=== PATIENT | female | born 1955 | race Hispanic/Latino ===

== ENCOUNTER 2017-10-26 13:29 | Inpatient (IN) | payer OTHER ==
--- NOTE | 2017-10-26 14:02 | Emergency Department Report ---
Chief Complaint: Extremity Problem,Nontraumatic Stated Complaint: UNAABLE TO WALK Time Seen by Provider: 10/26/17 13:48 - HPI History of Present Illness: Patient has been brought her back to the emergency room after being seen here a couple days ago. Patient came in for swelling to her legs and says she can't walk. She reports that she is having pain to her legs. Patient has a history of asthma, COPD and oxygen at home. Heart attack, congestive heart failure, chronic bilateral leg swelling, osteoarthritis. Patient says she came back because she can't walk. Patient was given a prescription for Bumex, spironolactone and Percocet and she has a prescription with her. Her said he couldn't get to the pharmacy. - ROS Review of Systems: All systems are negative unless stated in HPI above - Exam Vital Signs: Vital Signs 10/26/17 13:48 Temperature 97.8 F Pulse Rate 100 H Respiratory 18 Rate Blood Pressure 107/67 O2 Sat by Pulse 94 Oximetry Physical Exam: Gen.: 61-year-old female in no acute distress. Extremity: Bilateral lower extremity swelling, no cyanosis, no clubbing. +2 pulses to all extremities. No neurovascular compromise. No calf tenderness. Lungs: Patient on O2 with O2 sat at 94% on 2 L nasal cannula. No respiratory distress noted. Lung sounds diminished throughout from chronic COPD Cardiovascular: S1 and S2. Regular rate and rhythm negative murmur MSE screening note: Focused history and physical exam performed. Due to findings the following was ordered: ED Medical Decision Making - Medical Decision Making MDM: Patient screened by provider in triage area. Appropriate protocol initiated and patient to be seen in main ED by ED Disposition for MSE Condition: Stable
[2017-10-26 16:10] LABS: Alanine Aminotransferase 13 units/L (7-56); Albumin 3.5 g/dL (3.9-5); BUN/Creatinine Ratio 22; Blood Urea Nitrogen 20 mg/dL (7-17); Calcium 8.4 mg/dL (8.4-10.2); Hemolysis Index 9
--- NOTE | 2017-10-26 17:23 | Emergency Department Report ---
ED General Adult HPI - General Chief complaint: Extremity Problem,Nontraumatic Stated complaint: UNAABLE TO WALK Time Seen by Provider: 10/26/17 13:48 Source: patient, EMS Mode of arrival: Wheelchair Limitations: Physical Limitation - History of Present Illness Initial comments: Patient is 61-year-old female says she's had increasing pedal edema. Patient states she was recently released from [facility] she is a members at which she was admitted she wanted us to review the old records she probably had a admission at this facility also the admission and we have is not in the computer as a discharge summary however previous x-rays to show that she had CHF with a trach he ostomy patient states that they increasing swelling in her legs making it difficult to get around she is currently on medical management and is requesting transfer to rehabilitation he is here for essentially evaluation prior to possible admission for rehabilitation worsening pedal edema and acute exacerbation of her CHF and chest pain denies any fever no focal neural complaints of abdominal complaints - Related Data Allergies Allergy/AdvReac Type Severity Reaction Status Date / Time lisinopril Allergy Unknown Verified 10/26/17 13:48 pregabalin [From Lyrica] Allergy Unknown Verified 10/26/17 13:48 ED Review of Systems ROS: Stated complaint: UNAABLE TO WALK Other details as noted in HPI Comment: All other systems reviewed and negative Constitutional: denies: diaphoresis, malaise ENT: denies: dental pain, hearing loss, epistaxis Respiratory: orthopnea, SOB with exertion. denies: shortness of breath, SOB at rest Cardiovascular: dyspnea on exertion, orthopnea, edema. denies: chest pain, palpitations, syncope, paroxysmal nocturnal dyspnea Gastrointestinal: denies: abdominal pain, nausea, vomiting, diarrhea, constipation, hematemesis Genitourinary: denies: frequency, hematuria, discharge Musculoskeletal: denies: joint swelling, arthralgia, myalgia Neurological: denies: headache, weakness, numbness, paresthesias, confusion Hematological/Lymphatic: denies: easy bleeding, easy bruising ED Past Medical Hx - Past Medical History Previous Medical History?: Yes Hx Heart Attack/AMI: Yes Hx Asthma: Yes Hx COPD: Yes Additional medical history: leg swelling - Surgical History Past Surgical History?: Yes Additional Surgical History: Lauri akle surgery, Hernia repair x 6 @ [facility] area - Social History Smoking Status: Former Smoker Substance Use Type: Prescribed ED Physical Exam - General Limitations: Physical Limitation General appearance: alert, anxious - Head Head exam: Present: atraumatic, normocephalic - Eye Eye exam: Present: normal appearance, PERRL, EOMI. Absent: nystagmus - ENT ENT exam: Present: normal exam, normal orophraynx - Neck Neck exam: Present: normal inspection. Absent: tenderness, meningismus - Respiratory Respiratory exam: Present: rales, prolonged expiratory. Absent: respiratory distress, wheezes, stridor - Cardiovascular Cardiovascular Exam: Present: regular rate, normal rhythm - GI/Abdominal GI/Abdominal exam: Present: soft. Absent: distended, tenderness, guarding, rebound, mass, pulsatile mass - Extremities Exam Extremities exam: Present: pedal edema. Absent: joint swelling, calf tenderness - Back Exam Back exam: Absent: CVA tenderness (L), muscle spasm, paraspinal tenderness, vertebral tenderness - Neurological Exam Neurological exam: Present: alert, oriented X3, CN II-XII intact. Absent: motor sensory deficit - Skin Skin exam: Absent: cyanosis, diaphoretic, erythema, urticaria, vesicles, petechiae, pallor, abrasion ED Course Vital Signs 10/26/17 10/26/17 10/26/17 13:48 15:22 15:30 Temperature 97.8 F Pulse Rate 100 H Respiratory 18 Rate Blood Pressure 107/67 101/53 O2 Sat by Pulse 94 95 Oximetry 10/26/17 10/26/17 10/26/17 15:46 16:00 16:15 Temperature Pulse Rate Respiratory Rate Blood Pressure 88/42 110/66 109/59 O2 Sat by Pulse 98 95 Oximetry 10/26/17 10/26/17 10/26/17 16:30 16:46 17:00 Temperature Pulse Rate Respiratory Rate Blood Pressure 103/61 86/48 93/58 O2 Sat by Pulse Oximetry 10/26/17 10/26/17 10/26/17 17:15 17:38 19:00 Temperature Pulse Rate Respiratory 18 Rate Blood Pressure 100/54 130/86 O2 Sat by Pulse 97 84 Oximetry 10/26/17 19:16 Temperature Pulse Rate Respiratory Rate Blood Pressure 124/67 O2 Sat by Pulse 100 Oximetry - Reevaluation(s) Reevaluation #1: 10/26/17 19: Laboratory studies studies were ordered patient was given a Lasix chest x-ray shows congestion BMP is elevated patient states she is unable to walk chronic pedal edema chronic CHF ED Medical Decision Making - Lab Data Result diagrams: 10/26/17 15:32 - Radiology Data Radiology results: report reviewed - Medical Decision Making Patient was discussed with Dr. Acosta for admit she is apparently unable to get out of bed will slowly need physical therapy and rehabilitation however at this point time she does appear to have acute exacerbation of her chronic underlying CHF she is denying chest pain chest x-ray show congestion with elevated BMP she' ll be admitted for diuresis and improvement of her medical management of her chronic CHF and referral possibly to rehabilitation for further evaluation of her ambulation and her mobility to address those issues as well Dr. Acosta's or patient will see in the ED Critical care attestation.: If time is entered above; I have spent that time in minutes in the direct care of this critically ill patient, excluding procedure time. ED Disposition Clinical Impression: Acute exacerbation of CHF (congestive heart failure) Disposition: OP ADMIT IP TO THIS HOSP Is pt being admited?: Yes Condition: Stable Referrals: SELENA HEWTIT MD [Primary Care Provider] - 3-5 Days Time of Disposition: 19:30
[2017-10-26] MEDS ORDERED: LASIX PO ONE (17:34)
[2017-10-26] MEDS ORDERED: ATIVAN PO ONE (18:55)
--- NOTE | 2017-10-26 21:00 | XRay Report ---
FINAL REPORT PROCEDURE: Chest. TECHNIQUE: Portable AP view. HISTORY: Congestive heart failure. COMPARISON: No prior studies are available for comparison. FINDINGS: The radiograph is underpenetrated. The cardiac silhouette is enlarged. Pulmonary vascularity is prominent. The right lung is clear. There is some minimal opacity at the left lung base which may represent subsegmental atelectasis. The soft tissues are unremarkable. The regional skeleton appears intact. IMPRESSION: Question mild congestive heart failure.
[2017-10-26 21:25] LABS: Basophils # (Auto) 0.1 K/mm3 (0.0-0.1); Eosinophils # (Auto) 0.3 K/mm3 (0.0-0.4); Eosinophils % (Auto) 2.8 % (0.0-4.3); Hematocrit 30.4 % (30.3-42.9); Hemoglobin 9.4 gm/dl (10.1-14.3); Lymphocytes # (Auto) 1.7 K/mm3 (1.2-5.4); Lymphocytes % (Auto) 17.7 % (13.4-35.0); Mean Corpuscular HGB Conc 31 % (30-34); Mean Corpuscular Hemoglobin 29 pg (28-32); Mean Corpuscular Volume 95 fl (79-97); Monocytes # (Auto) 0.8 K/mm3 (0.0-0.8); Monocytes % (Auto) 8.2 % (0.0-7.3); Platelet Count 283 K/mm3 (140-440); Red Cell Distribution Width 17.6 % (13.2-15.2)
--- NOTE | 2017-10-26 23:29 | History and Physical Report ---
History of Present Illness Date of examination: 10/26/17 Date of admission: 10/26/17 19:32 Chief complaint: CC Increasing SOB for 1 week History of present illness: History of Present Illness Patient is 61-year-old female comes in for increasing pedal edema and SOB at rest. Patient states she was recently released from [facility] -- --she was admitted for CHF exacerbation.Patient has been having increasing SOB at minimal exertion and lying flat.Has NYHA 4 symptoms.No fever/;chills.No recent travel.No chest pain or palpitations.No diaphoresis.Because of recurrent chf exacerbation patient wants to go to LTAC for cardiac rehab. Past Medical History Previous Medical History?: Yes Hx Heart Attack/AMI: Yes Hx Asthma: Yes Hx COPD: Yes Additional medical history: leg swelling - Surgical History Past Surgical History?: Yes Additional Surgical History: Lauri akle surgery, Hernia repair x 6 @ [facility] area - Social History Smoking Status: Former Smoker Substance Use Type: Prescribed Fam Hx Htn Review of Systems Stated complaint: UNAABLE TO WALK Other details as noted in HPI Comment: All other systems reviewed and negative Constitutional: denies: diaphoresis, malaise ENT: denies: dental pain, hearing loss, epistaxis Respiratory: orthopnea, SOB with exertion. denies: shortness of breath, SOB at rest Cardiovascular: dyspnea on exertion, orthopnea, edema. denies: chest pain, palpitations, syncope, paroxysmal nocturnal dyspnea Gastrointestinal: denies: abdominal pain, nausea, vomiting, diarrhea, constipation, hematemesis Genitourinary: denies: frequency, hematuria, discharge Musculoskeletal: denies: joint swelling, arthralgia, myalgia Neurological: denies: headache, weakness, numbness, paresthesias, confusion Hematological/Lymphatic: denies: easy bleeding, easy bruising Medications and Allergies Allergies Allergy/AdvReac Type Severity Reaction Status Date / Time lisinopril Allergy Unknown Verified 10/26/17 13:48 pregabalin [From Lyrica] Allergy Unknown Verified 10/26/17 13:48 Home Medications Medication Instructions Recorded Confirmed Last Taken Type Folic Acid [Folvite] 1 mg PO QDAY 10/26/17 10/26/17 10/26/17 History Oxycodone HCl/Acetaminophen 1 each PO Q6HR PRN 10/26/17 10/26/17 10/26/17 History [Percocet 10/325 mg] Topiramate [Topamax] 100 mg PO BID 10/26/17 10/26/17 10/26/17 History Bumetanide [Bumex 1 mg tab] 2 mg PO BID 10/27/17 10/27/17 Unknown History risperiDONE [Risperdal] 0.5 mg PO BID 10/27/17 10/27/17 Unknown History Active Meds: Active Medications Oxycodone HCl (Roxicodone) 5 mg PO Q6H PRN PRN Reason: Pain, Moderate (4-6) Oxycodone/Acetaminophen (Percocet 5/325) 1 tab PO Q6H PRN PRN Reason: Pain, Moderate (4-6) Exam - Constitutional Vitals: Temp Pulse Resp BP Pulse Ox 97.7 F 95 H 18 106/74 95 10/26/17 21:19 10/26/17 21:19 10/26/17 21:19 10/26/17 21:19 10/26/17 21:19 General appearance: Present: no acute distress, well-nourished - EENT Eyes: Present: PERRL ENT: hearing intact, clear oral mucosa - Neck Neck: Present: supple, normal ROM - Respiratory Respiratory effort: normal Respiratory: bilateral: CTA, rales (Bilaterally) - Cardiovascular Heart rate: 80 Rhythm: regular Heart Sounds: Present: S1 & S2. Absent: rub, click - Extremities Extremities: no ischemia, pulses intact, pulses symmetrical, No edema Extremity abnormal: edema (4 plus) Peripheral Pulses: within normal limits - Abdominal General gastrointestinal: Present: soft, non-tender, non-distended, normal bowel sounds Female genitourinary: Present: normal - Integumentary Integumentary: Present: clear, warm, dry - Musculoskeletal Musculoskeletal: gait normal, strength equal bilaterally - Psychiatric Psychiatric: appropriate mood/affect, intact judgment & insight - Neurologic Neurologic: CNII-XII intact, moves all extremities - Allied Health Allied health notes reviewed: nursing, case management Results - Labs CBC & Chem 7: 10/27/17 05:01 10/27/17 05:01 Labs: Laboratory Last Values WBC 9.4 K/mm3 (4.5-11.0) 10/26/17 20:59 RBC 3.20 M/mm3 (3.65-5.03) L 10/26/17 20:59 Hgb 9.4 gm/dl (10.1-14.3) L 10/26/17 20:59 Hct 30.4 % (30.3-42.9) 10/26/17 20:59 MCV 95 fl (79-97) 10/26/17 20:59 MCH 29 pg (28-32) 10/26/17 20:59 MCHC 31 % (30-34) 10/26/17 20:59 RDW 17.6 % (13.2-15.2) H 10/26/17 20:59 Plt Count 283 K/mm3 (140-440) 10/26/17 20:59 Lymph % (Auto) 17.7 % (13.4-35.0) 10/26/17 20:59 [place] % (Auto) 8.2 % (0.0-7.3) H 10/26/17 20:59 Eos % (Auto) 2.8 % (0.0-4.3) 10/26/17 20:59 Baso % (Auto) 1.0 % (0.0-1.8) 10/26/17 20:59 Lymph # 1.7 K/mm3 (1.2-5.4) 10/26/17 20:59 [place] # 0.8 K/mm3 (0.0-0.8) 10/26/17 20:59 Eos # 0.3 K/mm3 (0.0-0.4) 10/26/17 20:59 Baso # 0.1 K/mm3 (0.0-0.1) 10/26/17 20:59 Seg Neutrophils % 70.3 % (40.0-70.0) H 10/26/17 20:59 Seg Neutrophils # 6.6 K/mm3 (1.8-7.7) 10/26/17 20:59 Sodium 141 mmol/L (137-145) 10/26/17 15:32 Potassium 5.1 mmol/L (3.6-5.0) H 10/26/17 15:32 Chloride 100.1 mmol/L (98-107) 10/26/17 15:32 Carbon Dioxide 27 mmol/L (22-30) 10/26/17 15:32 Anion Gap 19 mmol/L 10/26/17 15:32 BUN 20 mg/dL (7-17) H 10/26/17 15:32 Creatinine 0.9 mg/dL (0.7-1.2) 10/26/17 15:32 Estimated GFR > 60 ml/min 10/26/17 15:32 BUN/Creatinine Ratio 22 % 10/26/17 15:32 Glucose 95 mg/dL (65-100) 10/26/17 15:32 Calcium 8.4 mg/dL (8.4-10.2) 10/26/17 15:32 Total Bilirubin 0.20 mg/dL (0.1-1.2) 10/26/17 15:32 AST 18 units/L (5-40) 10/26/17 15:32 ALT 13 units/L (7-56) 10/26/17 15:32 Alkaline Phosphatase 106 units/L (35-129) 10/26/17 15:32 NT-Pro-B Natriuret Pep 5281 pg/mL (0-900) H 10/26/17 15:32 Total Protein 6.2 g/dL (6.3-8.2) L 10/26/17 15:32 Albumin 3.5 g/dL (3.9-5) L 10/26/17 15:32 Albumin/Globulin Ratio 1.3 % 10/26/17 15:32 Short CBC 10/26/17 10/27/17 Range/Units 20:59 05:01 WBC 9.4 8.6 (4.5-11.0) K/mm3 Hgb 9.4 L 8.4 L (10.1-14.3) gm/dl Hct 30.4 26.4 L (30.3-42.9) % Plt Count 283 277 (140-440) K/mm3 BMP 10/26/17 10/27/17 15:32 05:01 Sodium 141 143 Potassium 5.1 H 3.7 D Chloride 100.1 103.0 Carbon Dioxide 27 27 BUN 20 H 19 H Creatinine 0.9 0.8 Glucose 95 95 Calcium 8.4 8.1 L Liver Function 10/26/17 10/27/17 Range/Units 15:32 05:01 Total Bilirubin 0.20 0.20 (0.1-1.2) mg/dL AST 18 13 (5-40) units/L ALT 13 11 (7-56) units/L Alkaline Phosphatase 106 92 (35-129) units/L Albumin 3.5 L 3.2 L (3.9-5) g/dL - Imaging and Cardiology EKG: report reviewed Chest x-ray: report reviewed (CHF) Assessment and Plan Advance Directives: Yes (FC) VTE prophylaxis?: Chemical Plan of care discussed with patient/family: Yes - Patient Problems (1) Acute exacerbation of CHF (congestive heart failure) Current Visit: Yes Status: Acute Qualifiers: Congestive heart failure type: combined Qualified Code(s): I50.43 - Acute on chronic combined systolic (congestive) and diastolic (congestive) heart failure Plan to address problem: IV lasix for now BNP 5287 Echo ordered To cancel if done recently (2) COPD (chronic obstructive pulmonary disease) Current Visit: Yes Status: Chronic Qualifiers: COPD type: unspecified COPD Qualified Code(s): J44.9 - Chronic obstructive pulmonary disease, unspecified Plan to address problem: Cont Duonebs (3) Pulmonary HTN Current Visit: Yes Status: Chronic Plan to address problem: In view of Pedal edema in favor of Pul HTN May benedfit from revatio Defer to cardiology (4) Hyperkalemia Current Visit: Yes Status: Acute Plan to address problem: Mild -should resolve with Lasix (5) Malnutrition of moderate degree Current Visit: Yes Status: Chronic Plan to address problem: Diet consult requested (6) Bipolar 1 disorder Current Visit: Yes Status: Chronic Plan to address problem: On Risperdal (7) Discharge planning issues Current Visit: Yes Status: Acute Plan to address problem: Patient wants LTAC eval (8) DVT prophylaxis Current Visit: Yes Status: Acute Plan to address problem: on lovenox
[2017-10-26] MEDS ORDERED: MORPHINE IV PRN (23:30)
[2017-10-26] MEDS ORDERED: PROVENTIL IH PRN (23:30)
[2017-10-26] MEDS ORDERED: ZOFRAN IV PRN (23:30)
[2017-10-26] MEDS ORDERED: TYLENOL PO PRN (23:30)
[2017-10-26] MEDS ORDERED: DULCOLAX PR PRN (23:30)
[2017-10-26] MEDS ORDERED: NON-FORMULARY (Oxycodone Hcl/Acetaminophen [Percocet 10/325 Mg] 1 EACH) PO PRN (23:35)
[2017-10-26] MEDS: PERCOCET 5/325 PO PRN (23:50)
[2017-10-26] MEDS: ROXICODONE PO PRN (23:51)
[2017-10-26] MEDS: PEPCID PO SCH (23:51)
[2017-10-27] MEDS: ROXICODONE PO PRN (05:53)
[2017-10-27] MEDS: PERCOCET 5/325 PO PRN ×2 (05:53→22:37)
[2017-10-27] MEDS: LASIX IV SCH ×2 (05:55→18:45)
[2017-10-27 06:06] LABS: Basophils # (Auto) 0.1 K/mm3 (0.0-0.1); Basophils % (Auto) 1.3 % (0.0-1.8); Eosinophils # (Auto) 0.3 K/mm3 (0.0-0.4); Eosinophils % (Auto) 3.3 % (0.0-4.3); Hematocrit 26.4 % (30.3-42.9); Hemoglobin 8.4 gm/dl (10.1-14.3); Lymphocytes # (Auto) 1.9 K/mm3 (1.2-5.4); Lymphocytes % (Auto) 22.3 % (13.4-35.0); Mean Corpuscular HGB Conc 32 % (30-34); Mean Corpuscular Hemoglobin 30 pg (28-32); Mean Corpuscular Volume 93 fl (79-97); Monocytes # (Auto) 0.7 K/mm3 (0.0-0.8); Monocytes % (Auto) 8.4 % (0.0-7.3); Platelet Count 277 K/mm3 (140-440); Red Blood Count 2.83 M/mm3 (3.65-5.03); Red Cell Distribution Width 17.1 % (13.2-15.2)
[2017-10-27 06:30] LABS: Alanine Aminotransferase 11 units/L (7-56); Albumin 3.2 g/dL (3.9-5); BUN/Creatinine Ratio 24; Blood Urea Nitrogen 19 mg/dL (7-17); Calcium 8.1 mg/dL (8.4-10.2); Hemolysis Index 5
[2017-10-27 09:49] LABS: % Iron Saturation 14.45 %
[2017-10-27] MEDS ORDERED: NON-FORMULARY (Risperidone [Risperdal] 0.5 MG) PO SCH (10:00)
[2017-10-27] MEDS: TOPAMAX PO SCH ×2 (10:02→22:33)
--- NOTE | 2017-10-27 10:36 | Progress Note ---
Assessment and Plan Assessment and plan: Acute exacerbation of CHF (congestive heart failure) IV lasix for now BNP 5287 Echo ordered Cardiology consultation pending COPD (chronic obstructive pulmonary disease) Cont Duonebs Pulmonary HTN In view of Pedal edema in favor of Pul HTN May benedfit from revatio Defer to cardiology Hyperkalemia Mild -should resolve with Lasix Malnutrition of moderate degree Diet consult requested Bipolar 1 disorder On Risperdal Deconditioning Consider SNF. I d/w CM DVT prophylaxis on lovenox History Interval history: No new issues overnight. Hospitalist Physical - Constitutional Vitals: Temp Pulse Resp BP Pulse Ox 98.3 F 102 H 18 93/64 95 10/27/17 07:12 10/27/17 07:12 10/27/17 07:12 10/27/17 07:12 10/27/17 08:42 General appearance: Present: no acute distress, well-nourished - EENT Eyes: Present: PERRL, EOM intact ENT: hearing intact, clear oral mucosa, dentition normal - Neck Neck: Present: supple, normal ROM - Respiratory Respiratory effort: normal Respiratory: bilateral: CTA - Cardiovascular Rhythm: regular Heart Sounds: Present: S1 & S2. Absent: gallop, rub - Extremities Extremities: no ischemia, No edema, Full ROM - Abdominal General gastrointestinal: soft, non-tender, non-distended, normal bowel sounds - Integumentary Integumentary: Present: clear, warm, dry - Neurologic Neurologic: CNII-XII intact, moves all extremities Results - Labs CBC & Chem 7: 10/27/17 05:01 10/27/17 05:01 Labs: Laboratory Last Values WBC 8.6 K/mm3 (4.5-11.0) 10/27/17 05:01 RBC 2.83 M/mm3 (3.65-5.03) L 10/27/17 05:01 Hgb 8.4 gm/dl (10.1-14.3) L 10/27/17 05:01 Hct 26.4 % (30.3-42.9) L 10/27/17 05:01 MCV 93 fl (79-97) 10/27/17 05:01 MCH 30 pg (28-32) 10/27/17 05:01 MCHC 32 % (30-34) 10/27/17 05:01 RDW 17.1 % (13.2-15.2) H 10/27/17 05:01 Plt Count 277 K/mm3 (140-440) 10/27/17 05:01 Lymph % (Auto) 22.3 % (13.4-35.0) 10/27/17 05:01 [place] % (Auto) 8.4 % (0.0-7.3) H 10/27/17 05:01 Eos % (Auto) 3.3 % (0.0-4.3) 10/27/17 05:01 Baso % (Auto) 1.3 % (0.0-1.8) 10/27/17 05:01 Lymph # 1.9 K/mm3 (1.2-5.4) 10/27/17 05:01 [place] # 0.7 K/mm3 (0.0-0.8) 10/27/17 05:01 Eos # 0.3 K/mm3 (0.0-0.4) 10/27/17 05:01 Baso # 0.1 K/mm3 (0.0-0.1) 10/27/17 05:01 Seg Neutrophils % 64.7 % (40.0-70.0) 10/27/17 05:01 Seg Neutrophils # 5.5 K/mm3 (1.8-7.7) 10/27/17 05:01 Sodium 143 mmol/L (137-145) 10/27/17 05:01 Potassium 3.7 mmol/L (3.6-5.0) D 10/27/17 05:01 Chloride 103.0 mmol/L (98-107) 10/27/17 05:01 Carbon Dioxide 27 mmol/L (22-30) 10/27/17 05:01 Anion Gap 17 mmol/L 10/27/17 05:01 BUN 19 mg/dL (7-17) H 10/27/17 05:01 Creatinine 0.8 mg/dL (0.7-1.2) 10/27/17 05:01 Estimated GFR > 60 ml/min 10/27/17 05:01 BUN/Creatinine Ratio 24 % 10/27/17 05:01 Glucose 95 mg/dL (65-100) 10/27/17 05:01 Hemoglobin A1c 4.3 % (4-6) 10/27/17 05:01 Calcium 8.1 mg/dL (8.4-10.2) L 10/27/17 05:01 Iron 37 ug/dL (37-170) 10/27/17 09:08 TIBC 256 mcg/dL (250-450) 10/27/17 09:08 % Saturation 14.45 % 10/27/17 09:08 Transferrin 217 mg/dl (192-382) 10/27/17 09:08 Total Bilirubin 0.20 mg/dL (0.1-1.2) 10/27/17 05:01 AST 13 units/L (5-40) 10/27/17 05:01 ALT 11 units/L (7-56) 10/27/17 05:01 Alkaline Phosphatase 92 units/L (35-129) 10/27/17 05:01 NT-Pro-B Natriuret Pep 5281 pg/mL (0-900) H 10/26/17 15:32 Total Protein 6.1 g/dL (6.3-8.2) L 10/27/17 05:01 Albumin 3.2 g/dL (3.9-5) L 10/27/17 05:01 Albumin/Globulin Ratio 1.1 % 10/27/17 05:01 Vitamin B12 1137 pg/mL (211-911) H 10/27/17 09:08
[2017-10-27] MEDS: PEPCID PO SCH ×2 (10:52→22:36)
[2017-10-27] MEDS: RisperDAL PO SCH ×2 (10:52→22:33)
[2017-10-27] MEDS: K-DUR PO SCH ×2 (10:52→22:36)
[2017-10-27] MEDS: HABITROL TD SCH (10:53)
[2017-10-27] MEDS: FOLVITE PO SCH (10:53)
--- NOTE | 2017-10-27 11:21 | Consultation ---
History of Present Illness Consult date: 10/27/17 Consult reason: congestive heart failure History of present illness: This is a 61yr old woman with multiple medical problems who presented with difficulty walking after a prolonged hospitalization at [facility]. Cardiology consultation was requested for CHF. Chest x-ray reports possible mild CHF. She denies chest pain and shortness of breath. Bilateral lower extremity edema noted. Medications and Allergies Allergies Allergy/AdvReac Type Severity Reaction Status Date / Time lisinopril Allergy Unknown Verified 10/26/17 13:48 pregabalin [From Lyrica] Allergy Unknown Verified 10/26/17 13:48 Home Medications Medication Instructions Recorded Confirmed Last Taken Type Folic Acid [Folvite] 1 mg PO QDAY 10/26/17 10/26/17 10/26/17 History Oxycodone HCl/Acetaminophen 1 each PO Q6HR PRN 10/26/17 10/26/17 10/26/17 History [Percocet 10/325 mg] Topiramate [Topamax] 100 mg PO BID 10/26/17 10/26/17 10/26/17 History Bumetanide [Bumex 1 mg tab] 2 mg PO BID 10/27/17 10/27/17 Unknown History risperiDONE [Risperdal] 0.5 mg PO BID 10/27/17 10/27/17 Unknown History Active Meds: Active Medications Acetaminophen (Tylenol) 650 mg PO Q4H PRN PRN Reason: Pain MILD(1-3)/Fever >100.5/[place] Albuterol (Proventil) 2.5 mg IH Q4HRT PRN PRN Reason: Shortness Of Breath Bisacodyl (Dulcolax) 10 mg HI QDAY PRN PRN Reason: Constipation unrelieved by MOM Famotidine (Pepcid) 20 mg PO BID [facility] Last Admin: 10/26/17 23:51 Dose: 20 mg Folic Acid (Folvite) 1 mg PO QDAY [facility] Furosemide (Lasix) 40 mg IV 0600,1800 [facility] Last Admin: 10/27/17 05:55 Dose: 40 mg Magnesium Hydroxide (Milk Of Magnesia) 30 ml PO Q4H PRN PRN Reason: Constipation Morphine Sulfate (Morphine) 2 mg IV Q4H PRN PRN Reason: Pain, Moderate (4-6) Morphine Sulfate (Morphine) 4 mg IV Q4H PRN PRN Reason: Pain , Severe (7-10) Nicotine (Habitrol) 21 mg TD QDAY MICHELLE Ondansetron HCl (Zofran) 4 mg IV Q8H PRN PRN Reason: N/V unrelieved by Reglan Oxycodone HCl (Roxicodone) 5 mg PO Q6H PRN PRN Reason: Pain, Moderate (4-6) Last Admin: 10/27/17 05:53 Dose: 5 mg Oxycodone/Acetaminophen (Percocet 5/325) 1 tab PO Q6H PRN PRN Reason: Pain, Moderate (4-6) Last Admin: 10/27/17 05:53 Dose: 1 tab Potassium Chloride (K-Dur) 20 meq PO Q12HR MICHELLE Risperidone (Risperdal) 0.5 mg PO BID MICHELLE Topiramate (Topamax) 100 mg PO BID MICHELLE Physical Examination Vital Signs Temp Pulse Resp BP Pulse Ox 97.8 F 100 H 18 107/67 94 10/26/17 13:48 10/26/17 13:48 10/26/17 13:48 10/26/17 13:48 10/26/17 13:48 General appearance: no acute distress HEENT: Positive: PERRL Cardiac: Positive: irregularly irregular Neuro: Positive: Grossly Intact Extremities: Present: edema Results 10/27/17 05:01 10/27/17 05:01 Cardiac Enzymes 10/26/17 10/27/17 Range/Units 15:32 05:01 AST 18 13 (5-40) units/L CBC 10/26/17 10/27/17 Range/Units 20:59 05:01 WBC 9.4 8.6 (4.5-11.0) K/mm3 RBC 3.20 L 2.83 L (3.65-5.03) M/mm3 Hgb 9.4 L 8.4 L (10.1-14.3) gm/dl Hct 30.4 26.4 L (30.3-42.9) % Plt Count 283 277 (140-440) K/mm3 Lymph # 1.7 1.9 (1.2-5.4) K/mm3 [place] # 0.8 0.7 (0.0-0.8) K/mm3 Eos # 0.3 0.3 (0.0-0.4) K/mm3 Baso # 0.1 0.1 (0.0-0.1) K/mm3 Comprehensive Metabolic Panel 10/26/17 10/27/17 Range/Units 15:32 05:01 Sodium 141 143 (137-145) mmol/L Potassium 5.1 H 3.7 D (3.6-5.0) mmol/L Chloride 100.1 103.0 (98-107) mmol/L Carbon Dioxide 27 27 (22-30) mmol/L BUN 20 H 19 H (7-17) mg/dL Creatinine 0.9 0.8 (0.7-1.2) mg/dL Glucose 95 95 (65-100) mg/dL Calcium 8.4 8.1 L (8.4-10.2) mg/dL AST 18 13 (5-40) units/L ALT 13 11 (7-56) units/L Alkaline Phosphatase 106 92 (35-129) units/L Total Protein 6.2 L 6.1 L (6.3-8.2) g/dL Albumin 3.5 L 3.2 L (3.9-5) g/dL Assessment and Plan Deconditioned Atrial fibrillation, rate controlled Hx of COPD/TOSHIA Tobacco abuse Hx AAA (3.6 cm) Cardiomyopathy EF 35-40% on echo 08/2017 at [place]
[2017-10-27] MEDS: MORPHINE IV PRN (11:57)
[2017-10-27] MEDS: MILK OF MAGNESIA PO PRN (13:21)
[2017-10-27] MEDS: CORDARONE PO SCH ×2 (13:21→22:36)
[2017-10-27] MEDS: LOPRESSOR PO SCH ×2 (13:22→22:34)
[2017-10-27] MEDS: ELIQUIS PO SCH (22:36)
[2017-10-28] MEDS: ROXICODONE PO PRN ×2 (01:20→21:36)
[2017-10-28] MEDS: LASIX IV SCH ×2 (06:18→17:24)
[2017-10-28] MEDS: PERCOCET 5/325 PO PRN ×2 (06:19→13:27)
[2017-10-28] MEDS: MILK OF MAGNESIA PO PRN (06:31)
[2017-10-28] MEDS: MORPHINE IV PRN (10:02)
[2017-10-28] MEDS: HABITROL TD SCH (10:03)
[2017-10-28] MEDS: RisperDAL PO SCH ×3 (10:47→21:37)
[2017-10-28] MEDS: K-DUR PO SCH ×3 (10:47→21:37)
[2017-10-28] MEDS: CORDARONE PO SCH ×3 (10:47→21:37)
[2017-10-28] MEDS: PEPCID PO SCH ×3 (10:47→21:37)
[2017-10-28] MEDS: FOLVITE PO SCH ×2 (10:47→12:08)
[2017-10-28] MEDS: LOPRESSOR PO SCH ×2 (10:47→21:37)
[2017-10-28] MEDS: ELIQUIS PO SCH ×3 (10:47→21:35)
[2017-10-28] MEDS: TOPAMAX PO SCH ×3 (10:47→21:37)
--- NOTE | 2017-10-28 11:10 | Progress Note ---
Assessment and Plan Deconditioned, inability to walk Persistent Atrial fibrillation on amiodarone, metoprolol and eliquis Acute systolic heart failure Hx of COPD/TOSHIA Tobacco abuse Hx AAA (3.6 cm) Cardiomyopathy EF 35-40% on echo 08/2017 at [place]. Mildly reversible apical wall defect on MPI 07/2016 at [place]. Continue medical therapy for systolic heart failure and atrial fibrillation. We recommend further ischemic evaluation with a cardiac catheterization once heart failure is resolved. Subjective Date of service: 10/28/17 Interval history: No cardiac complaints. Objective Vital Signs Temp Pulse Pulse Resp BP BP Pulse Ox 10/28/17 05:18 98.5 F 110 H 20 101/56 97 10/28/17 04:00 92 H 10/28/17 00:26 98.5 F 92 H 20 101/65 100 10/27/17 22:34 102 H 102/63 10/27/17 22:00 102 H 99 10/27/17 20:10 99.4 F 109 H 20 102/63 99 10/27/17 20:00 106 H 10/27/17 15:52 98.2 F 115 H 18 116/70 99 10/27/17 11:18 98.5 F 114 H 18 111/77 99 - Physical Examination General: No Apparent Distress HEENT: Positive: PERRL Cardiac: Positive: irregularly irregular Extremities: Present: edema - Imaging and Cardiology EKG: report reviewed
[2017-10-28] MEDS ORDERED: LANOXIN PO ONE (11:33)
[2017-10-28] MEDS ORDERED: CITRATE OF MAGNESIA PO ONE (12:35)
[2017-10-28] MEDS ORDERED: AMBIEN PO PRN (12:35)
--- NOTE | 2017-10-28 12:35 | Progress Note ---
Assessment and Plan Assessment and plan: Acute systolic heart failure exacerbation Cardiology following. Continue aggressive medical therapy for fluid overload including diuretics, afterload reducing agents and beta blockers. Cardiomyopathy EF 35-40% on echocardiogram. Patient with mild reversible apical wall defect on MPI 07/2016 COPD (chronic obstructive pulmonary disease) Cont Duonebs Pulmonary HTN Hyperkalemia Mild -should resolve with Lasix Malnutrition of moderate degree Diet consult requested Bipolar 1 disorder On Risperdal Deconditioning Consider SNF. I d/w CM DVT prophylaxis on lovenox History Interval history: No new issues overnight. Hospitalist Physical - Constitutional Vitals: Temp Pulse Resp BP Pulse Ox 98.5 F 107 H 20 105/59 100 10/28/17 05:18 10/28/17 08:45 10/28/17 05:18 10/28/17 11:25 10/28/17 08:45 General appearance: Present: no acute distress - EENT Eyes: Present: PERRL, EOM intact ENT: hearing intact, clear oral mucosa, dentition normal - Neck Neck: Present: supple, normal ROM - Respiratory Respiratory effort: normal Respiratory: bilateral: CTA - Cardiovascular Rhythm: regular Heart Sounds: Present: S1 & S2. Absent: gallop, rub - Extremities Extremities: no ischemia, No edema, Full ROM - Abdominal General gastrointestinal: soft, non-tender, non-distended, normal bowel sounds - Integumentary Integumentary: Present: clear, warm, dry - Neurologic Neurologic: CNII-XII intact, moves all extremities Results - Labs CBC & Chem 7: 10/27/17 05:01 10/27/17 05:01 Labs: Laboratory Last Values WBC 8.6 K/mm3 (4.5-11.0) 10/27/17 05:01 RBC 2.83 M/mm3 (3.65-5.03) L 10/27/17 05:01 Hgb 8.4 gm/dl (10.1-14.3) L 10/27/17 05:01 Hct 26.4 % (30.3-42.9) L 10/27/17 05:01 MCV 93 fl (79-97) 10/27/17 05:01 MCH 30 pg (28-32) 10/27/17 05:01 MCHC 32 % (30-34) 10/27/17 05:01 RDW 17.1 % (13.2-15.2) H 10/27/17 05:01 Plt Count 277 K/mm3 (140-440) 10/27/17 05:01 Lymph % (Auto) 22.3 % (13.4-35.0) 10/27/17 05:01 [place] % (Auto) 8.4 % (0.0-7.3) H 10/27/17 05:01 Eos % (Auto) 3.3 % (0.0-4.3) 10/27/17 05:01 Baso % (Auto) 1.3 % (0.0-1.8) 10/27/17 05:01 Lymph # 1.9 K/mm3 (1.2-5.4) 10/27/17 05:01 [place] # 0.7 K/mm3 (0.0-0.8) 10/27/17 05:01 Eos # 0.3 K/mm3 (0.0-0.4) 10/27/17 05:01 Baso # 0.1 K/mm3 (0.0-0.1) 10/27/17 05:01 Seg Neutrophils % 64.7 % (40.0-70.0) 10/27/17 05:01 Seg Neutrophils # 5.5 K/mm3 (1.8-7.7) 10/27/17 05:01 Sodium 143 mmol/L (137-145) 10/27/17 05:01 Potassium 3.7 mmol/L (3.6-5.0) D 10/27/17 05:01 Chloride 103.0 mmol/L (98-107) 10/27/17 05:01 Carbon Dioxide 27 mmol/L (22-30) 10/27/17 05:01 Anion Gap 17 mmol/L 10/27/17 05:01 BUN 19 mg/dL (7-17) H 10/27/17 05:01 Creatinine 0.8 mg/dL (0.7-1.2) 10/27/17 05:01 Estimated GFR > 60 ml/min 10/27/17 05:01 BUN/Creatinine Ratio 24 % 10/27/17 05:01 Glucose 95 mg/dL (65-100) 10/27/17 05:01 Hemoglobin A1c 4.3 % (4-6) 10/27/17 05:01 Calcium 8.1 mg/dL (8.4-10.2) L 10/27/17 05:01 Iron 37 ug/dL (37-170) 10/27/17 09:08 TIBC 256 mcg/dL (250-450) 10/27/17 09:08 % Saturation 14.45 % 10/27/17 09:08 Transferrin 217 mg/dl (192-382) 10/27/17 09:08 Total Bilirubin 0.20 mg/dL (0.1-1.2) 10/27/17 05:01 AST 13 units/L (5-40) 10/27/17 05:01 ALT 11 units/L (7-56) 10/27/17 05:01 Alkaline Phosphatase 92 units/L (35-129) 10/27/17 05:01 NT-Pro-B Natriuret Pep 5281 pg/mL (0-900) H 10/26/17 15:32 Total Protein 6.1 g/dL (6.3-8.2) L 10/27/17 05:01 Albumin 3.2 g/dL (3.9-5) L 10/27/17 05:01 Albumin/Globulin Ratio 1.1 % 10/27/17 05:01 Vitamin B12 1137 pg/mL (211-911) H 10/27/17 09:08
[2017-10-28] MEDS ORDERED: LANOXIN PO SCH (17:00)
[2017-10-29 05:32] VITALS: BP 114/68
[2017-10-29] MEDS: LASIX IV SCH (06:27)
[2017-10-29] MEDS: PERCOCET 5/325 PO PRN ×2 (06:28→13:56)
[2017-10-29] MEDS: FOLVITE PO SCH (10:00)
[2017-10-29] MEDS: K-DUR PO SCH (10:00)
[2017-10-29] MEDS: RisperDAL PO SCH (10:00)
[2017-10-29] MEDS ORDERED: ZESTRIL PO SCH (10:00)
[2017-10-29] MEDS: ELIQUIS PO SCH (10:00)
[2017-10-29] MEDS: PEPCID PO SCH (10:00)
[2017-10-29] MEDS: TOPAMAX PO SCH ×2 (10:00→13:57)
[2017-10-29] MEDS: CORDARONE PO SCH (10:00)
[2017-10-29] MEDS: LOPRESSOR PO SCH (10:00)
--- NOTE | 2017-10-29 11:12 | Progress Note ---
Assessment and Plan Deconditioned, inability to walk Persistent Atrial fibrillation on amiodarone, metoprolol and eliquis Acute systolic heart failure Hx of COPD/TOSHIA Tobacco abuse Hx AAA (3.6 cm) Cardiomyopathy EF 35-40% on echo 08/2017 at [place]. Mildly reversible apical wall defect on MPI 07/2016 at [place]. Recommendations: Continue medical therapy for systolic heart failure and atrial fibrillation. Obtain cardiac cath from [facility] for cardiac review. Subjective Date of service: 10/29/17 Interval history: No cardiac complaints. at bedside reports the patient had a LHC 2-3 years ago at [facility] in [facility] Objective Vital Signs Temp Pulse Pulse Resp BP BP Pulse Ox 10/29/17 06:28 20 10/29/17 05:24 98.8 F 110 H 21 114/68 97 10/28/17 23:32 114 H 10/28/17 23:31 114 H 10/28/17 23:30 98.7 F 89 20 112/74 100 10/28/17 21:37 114 H 108/69 10/28/17 21:36 20 10/28/17 20:33 113 H 20 97 10/28/17 16:55 114 H 108/69 99 10/28/17 15:49 100 10/28/17 13:09 98.6 F 108 H 18 89/45 100 10/28/17 12:00 126 H 10/28/17 11:25 105/59 - Physical Examination General: No Apparent Distress HEENT: Positive: PERRL Cardiac: Positive: irregularly irregular Extremities: Present: edema - Imaging and Cardiology EKG: report reviewed
--- NOTE | 2017-10-29 11:30 | Discharge Summary ---
Providers - Providers Date of Admission: 10/27/17 15:01 Date of discharge: 10/29/17 Attending physician: SHABANA VILLARREAL 10/26/17 23:30 Consult to Physician [CONS] Routine Consulting Provider: SAMARIA SALDIVAR Reason For Exam: [facility] Place consult to:: Dr. Saldivar Notified:: Mely HULL Phone number called:: Was contact made?: Yes If yes, spoke with:: Farrah-answering service Time called:: 08:24 10/27/17 06:38 Consult to Case Management [CONS] Routine Services Needed at Discharge: Other Notified:: Pepe Additional Physician Instructions: Patient requesting Rehab 10/27/17 08:00 Physical Therapy Evaluation and Treat [CONS] Routine Comment: Reason For Exam: difficulty ambulatin 10/27/17 15:01 Occupational Therapy Evaluate and Treat [CONS] Routine Comment: Reason For Exam: Eval and treat Primary care physician: SELENA HEWITT Hospitalization Reason for admission: LE weakness Condition: Stable Hospital course: This is a 61-year-old female with significant past medical history of cardiomyopathy with EF of 35-40%, persistent atrial fibrillation on Eliquis, COPD, TOSHIA, and history of AAA who presented through the emergency department with complaints of deconditioning and inability to walk. Patient was recently admitted to [facility] and then later transferred to [facility] where she was discharged last week. Patient was treated therefore acute on chronic systolic heart failure. The patient was admitted here again for mild acute systolic heart failure. The patient was seen by cardiology in consultation for her dilated cardiomyopathy and recurrent heart failure. Cardiology recommended continuing aggressive medical therapy for fluid overload including diuretics, afterload reducing agents and beta blockers. Patient likely eventually will need further evaluation with cardiac catheterization in the future. Case management was consulted with regards to discharge planning and SNF placement. Dedicated discharge time 32 minutes. Disposition: - TO HOME OR SELFCARE Time spent for discharge: 32 Core Measure Documentation - Palliative Care Palliative Care/ Comfort Measures: Not Applicable - Core Measures Any of the following diagnoses?: none - Heart Failure Discharge Requirements EFRAIN/ARB for LVSD if EF <40%: No Reason for no EFRAIN/ARB: Allergy or sensitivity Beta salena at discharge: Yes Exam - Constitutional Vitals: Temp Pulse Resp BP Pulse Ox 98.8 F 110 H 20 114/68 97 10/29/17 05:24 10/29/17 05:24 10/29/17 06:28 10/29/17 05:24 10/29/17 05:24 General appearance: Present: no acute distress, well-nourished - EENT Eyes: Present: PERRL ENT: hearing intact, clear oral mucosa - Neck Neck: Present: supple, normal ROM - Respiratory Respiratory effort: normal Respiratory: bilateral: CTA - Cardiovascular Heart Sounds: Present: S1 & S2. Absent: rub, click - Extremities Extremities: pulses symmetrical, No edema Peripheral Pulses: within normal limits - Abdominal General gastrointestinal: Present: soft, non-tender, non-distended, normal bowel sounds Female genitourinary: Present: normal - Integumentary Integumentary: Present: clear, warm, dry - Musculoskeletal Musculoskeletal: gait normal, strength equal bilaterally - Psychiatric Psychiatric: appropriate mood/affect, intact judgment & insight - Neurologic Neurologic: CNII-XII intact, moves all extremities Plan Activity: no restrictions Weight Bearing Status: Weight Bear as Tolerated Diet: low cholesterol, low salt Follow up with: SELENA HEWITT MD [Primary Care Provider] - 3-5 Days KO JAIME MD [Staff Physician] - 7 Days Prescriptions: Furosemide [Lasix] 40 mg PO BID #30 tablet
--- NOTE | 2017-10-29 13:01 | Query- Dyspnea ---
Deaelizabeth Swann Azael Date:____10/29/17 Business Education Instructor/CDS:____Anashannan Phone#: [phone] Exercise your independent professional judgment when responding to query. Questions asked do not imply a particular answer is desired or expected. We greatly appreciate your clarification on this issue. Clinical Documentation States: 61 year old female was admitted on 10/26/17 The discharge summary (Dr. Addison ) States " This is a 61-year-old female with significant past medical history of cardiomyopathy with EF of 35-40%, persistent atrial fibrillation on Eliquis, COPD, TOSHIA, and history of AAA who presented through the emergency department with complaints of deconditioning and inability to walk. " The Progress note (Dr. Addison 10/28/17) states " Assessment and plan: Acute systolic heart failure exacerbation COPD (chronic obstructive pulmonary disease) " Clinical Findings Show: O2 SAT: 84% O2 flow rate: 2 L/min Please clarify if the patient had any of the following conditions based on the above clinical findings: [ x] Respiratory Failure [ x] Acute [ ] Acute on Chronic [ ] Chronic [ ] Respiratory failure due to trauma [ ] Acute Respiratory Distress Syndrome [ ] Other: [ ] Unable to determine [ ] Comment/Explanation: Present on Admission: [ x] Yes (Y) [ ] Clinically undeterminable (W) [ ] No (N) Please also document response in your Progress Notes and/or Discharge Summary and indicate if the condition was present on admission. MTDD
[2017-10-29] MEDS: HABITROL TD SCH (14:01)
== END 2017-10-29 19:27 | disposition home or self-care (01) | DRG 291 ==
LOC: ED 13:29 → 4A 19:32 → OBSVTOIN 10-27 15:01
PROVIDERS: ADMIT Internal Medicine; ATTEND Hospitalist
DX: I50.43 Acute on chronic combined systolic (congestive) and diastolic (congestive) heart failure (principal); J96.00 Acute respiratory failure, unspecified whether with hypoxia or hypercapnia; E44.0 Moderate protein-calorie malnutrition; I42.9 Cardiomyopathy, unspecified; J44.9 Chronic obstructive pulmonary disease, unspecified; E87.5 Hyperkalemia; F31.9 Bipolar disorder, unspecified; Z88.8 Allergy status to other drugs, medicaments and biological substances; I25.2 Old myocardial infarction; D64.9 Anemia, unspecified; F17.200 Nicotine dependence, unspecified, uncomplicated; I27.20 Pulmonary hypertension, unspecified; I48.91 Unspecified atrial fibrillation; Z68.36 Body mass index [BMI] 36.0-36.9, adult
CPT/HCPCS: 36415; 71010; 80053; 82607; 82747; 83036; 83550; 83880; 85025; 93005; 93010; 94760; 99285; 99406; G0378; J1940; J2270